=== PATIENT | female | born 1995 | race Hispanic/Latino ===

== ENCOUNTER 2018-11-30 15:32 | Emergency (ER) | payer SELFPAY ==
[2018-11-30] MEDS ORDERED: Dexamethasone 4 MG TAB ONE (17:52)
== END 2018-11-30 16:11 | disposition home or self-care (01) ==
LOC: ERS 15:32
DX: L50.9 Urticaria, unspecified (principal)
CPT/HCPCS: 99283; J8540

== ENCOUNTER 2024-11-11 06:02 | Emergency (ER) | payer BC ==
[2024-11-11] MEDS ORDERED: diphenhydrAMINE 50 MG/ML VIAL ONE (06:15)
[2024-11-11] MEDS ORDERED: Famotidine/PF 20 mg/2ml Vial ONE (06:21)
[2024-11-11] MEDS ORDERED: Tranexamic Acid 1,000 MG/10 ML VIAL ONE (06:53)
== END 2024-11-11 09:45 | disposition home or self-care (01) ==
LOC: ERS 06:02
DX: T78.3XXA Angioneurotic edema, initial encounter (principal)
CPT/HCPCS: 96374; 96375; J0169; J1200; J1308; J2919